=== PATIENT | female | born 1945 | race Caucasian/White ===

== ENCOUNTER → 2021-02-23 09:43 | Outpatient (CLI) | payer MEDICARE ==
[2015-06-17 15:40] VITALS: BMI 22.5
[~2021-02-23 09:43] MED LIST: ALENDRONATE SOD70 MG PO; ASPIRIN EC81 M1 PO; CALCIUM 600+D T1 TA1 PO; FISH OIL 1,0001 CA1 PO; LIPITOR10 MG PO; MELOXICAM PO; NORVASC10 MG PO; NORVASC5 MG PO; PLAVIX75 MG PO; TRAZODONE HCL150 MG PO; VENTOLIN HFA18 GM INH; VITAMIN E1000 UNIT PO
== END | disposition home or self-care (01) ==
LOC: D.CT 09:43
PROVIDERS: ATTEND Clinical Nurse Specialist Adult Health
DX: I63.9 Cerebral infarction, unspecified (principal)